=== PATIENT | male | born 1995 | race Caucasian/White ===

== ENCOUNTER 2018-06-07 09:38 | Emergency (ER) | payer SELFPAY ==
[2018-06-07] MEDS ORDERED: Sodium Chloride 0.9% 2.5 ML Syringe FLUSH PRN (10:37)
[2018-06-07] MEDS ORDERED: Sodium Chloride 0.9% 10 ML Syringe FLUSH PRN (10:37)
[2018-06-07] MEDS ORDERED: Sodium Chloride 0.9% 1,000 ML IV ONE (10:37)
[2018-06-07] MEDS ORDERED: Ondansetron 4 MG/2 ML SDV IVPUSH ONE (10:38)
--- NOTE | 2018-06-07 10:40 | EDM.PDOC ---
ED HPI GENERAL MEDICAL PROBLEM - General Chief Complaint: Abdominal Pain Stated Complaint: STOMACH HURTS Time Seen by Provider: 06/07/18 10:37 Source of Information: Reports: Patient History Limitations: Reports: No Limitations - History of Present Illness INITIAL COMMENTS - FREE TEXT/NARRATIVE: HISTORY AND PHYSICAL: History of present illness: Patient is a 22-year-old male here with complaint of vomiting and abdominal cramping sine yesterday evening. He states he is unable to keep anything down and has had diarrhea as well. He states his boss has had similar symptoms. He also states he has had a cough, sore throat, runny nose x 2 weeks. He denies chest pain, shortness of breath, melena, hematochezia, urinary symptoms. He smokes 1/2 ppd. Review of systems: As per history of present illness and below otherwise all systems reviewed and negative. Past medical history: As per history of present illness and as reviewed below otherwise noncontributory. Surgical history: As per history of present illness and as reviewed below otherwise noncontributory. Social history: No reported history of drug or alcohol abuse. Family history: As per history of present illness and as reviewed below otherwise noncontributory. Physical exam: General: Patient sitting comfortably in no acute distress and nontoxic appearing HEENT: Atraumatic, normocephalic, pupils reactive, negative for conjunctival pallor or scleral icterus, mucous membranes moist, throat clear, neck supple, nontender, trachea midline. No meningeal signs. Lungs: Clear to auscultation, breath sounds equal bilaterally, chest nontender. Heart: S1S2, regular, negative for clicks, rubs, or overt murmur. Abdomen: Soft, nondistended, nontender. Negative for masses or hepatosplenomegaly. Negative for costovertebral tenderness. Pelvis: Stable nontender. Genitourinary: Deferred. Rectal: Deferred. Extremities: Atraumatic, negative for cords or calf pain. Neurovascular unremarkable. Neuro: Awake, alert, oriented. Cranial nerves II through XII unremarkable. Cerebellum unremarkable. Motor and sensory unremarkable throughout. Exam nonfocal. Notes: Diagnostics: CBC, CMP, CXR Therapeutics: 1L NS IV 4mg Zofran IV Prescriptions: Azithromycin Ventolin inhaler Zofran Impression: Viral gastroenteritis, acute bronchitis Plan: 1. Take medications as prescribed 2. Follow up with primary care provider 3. Return to ED as needed as discussed Definitive disposition and diagnosis as appropriate pending reevaluation and review of above. Abdomen Pain Score (Numeric/FACES): 7 - Related Data Allergies Allergy/AdvReac Type Severity Reaction Status Date / Time No Known Allergies Allergy Verified 06/07/18 10:32 Home Meds: Home Meds Albuterol [Ventolin HFA] 1 puff INH Q4H #1 inhaler 06/07/18 [Rx] Azithromycin [Zithromax] 250 mg PO ASDIRECTED #1 dosepk 06/07/18 [Rx] Ondansetron [Zofran ODT] 4 mg PO Q6H PRN #10 tab.dis 06/07/18 [Rx] Past Medical History HEENT History: Reports: Impaired Vision Other HEENT History: wears glasses Social & Family History - Tobacco Use Smoking Status *Q: Current Every Day Smoker Years of Tobacco use: 2 Packs/Tins Daily: 0.5 - Caffeine Use Caffeine Use: Reports: Energy Drinks - Recreational Drug Use Recreational Drug Use: No ED ROS GENERAL - Review of Systems Review Of Systems: ROS reveals no pertinent complaints other than HPI. ED EXAM, GI/ABD - Physical Exam Exam: See Below (see dictation) Course - Vital Signs Last Recorded V/S: Last Vital Signs Temp 36.5 C 06/07/18 10:29 Pulse 88 06/07/18 10:29 Resp 18 06/07/18 10:29 BP 121/78 06/07/18 10:29 Pulse Ox 99 06/07/18 10:29 - Orders/Labs/Meds Orders: Active Orders 24 hr Category Date Time Status Chest 1V Frontal [CR] Stat Exams 06/07/18 10:37 Taken CULTURE STREP A CONFIRMATION [RM] Stat Lab 06/07/18 10:55 Results CULTURE URINE [RM] Stat Lab 06/07/18 11:55 Received STREP SCRN A RAPID W CULT CONF [RM] Stat Lab 06/07/18 10:55 Results Sodium Chloride 0.9% [Saline Flush] Med 06/07/18 10:37 Active 10 ml FLUSH ASDIRECTED PRN Sodium Chloride 0.9% [Saline Flush] Med 06/07/18 10:37 Active 2.5 ml FLUSH ASDIRECTED PRN Saline Lock Insert [OM.PC] Stat Oth 06/07/18 10:36 Ordered Medication Orders Sodium Chloride (Saline Flush) 10 ml FLUSH ASDIRECTED PRN PRN Reason: Keep Vein Open Sodium Chloride (Saline Flush) 2.5 ml FLUSH ASDIRECTED PRN PRN Reason: Keep Vein Open Labs: Laboratory Tests 06/07/18 06/07/18 06/07/18 Range/Units 11:00 11:00 11:55 WBC 3.76 L (4.0-11.0) K/uL RBC 4.95 (4.50-5.90) M/uL Hgb 15.2 (13.0-17.0) g/dL Hct 43.1 (38.0-50.0) % MCV 87.1 (80.0-98.0) fL MCH 30.7 (27.0-32.0) pg MCHC 35.3 (31.0-37.0) g/dL RDW Std Deviation 42.0 (28.0-62.0) fl RDW Coeff of Jennifer 13 (11.0-15.0) % Plt Count 230 (150-400) K/uL MPV 11.20 (7.40-12.00) fL Neut % (Auto) 34.8 L (48.0-80.0) % Lymph % (Auto) 48.9 H (16.0-40.0) % [place] % (Auto) 7.2 (0.0-15.0) % Eos % (Auto) 8.8 H (0.0-7.0) % Baso % (Auto) 0.3 (0.0-1.5) % Neut # (Auto) 1.3 L (1.4-5.7) K/uL Lymph # (Auto) 1.8 (0.6-2.4) K/uL [place] # (Auto) 0.3 (0.0-0.8) K/uL Eos # (Auto) 0.3 (0.0-0.7) K/uL Baso # (Auto) 0.0 (0.0-0.1) K/uL Nucleated RBC % 0.0 /100WBC Nucleated RBCs # 0 K/uL Sodium 138 (136-148) mmol/L Potassium 3.5 (3.5-5.1) mmol/L Chloride 104 (98-107) mmol/L Carbon Dioxide 28.2 (21.0-32.0) mmol/L BUN 10 (7.0-18.0) mg/dL Creatinine 1.0 (0.8-1.3) mg/dL Est Cr Clr Drug Dosing 104.56 mL/min Estimated GFR (MDRD) > 60.0 ml/min Glucose 105 (74-106) mg/dL Calcium 8.7 (8.5-10.1) mg/dL Total Bilirubin 0.3 (0.2-1.0) mg/dL AST 18 (15-37) IU/L ALT 27 (14-63) IU/L Alkaline Phosphatase 86 (46-116) U/L Total Protein 7.9 (6.4-8.2) g/dL Albumin 4.2 (3.4-5.0) g/dL Globulin 3.7 H (2.0-3.5) g/dL Albumin/Globulin Ratio 1.1 L (1.3-2.8) Urine Color YELLOW Urine Appearance CLEAR Urine pH 5.5 (5.0-8.0) Ur Specific [place] >= 1.030 (1.001-1.035) Urine Protein NEGATIVE (NEGATIVE) mg/dL Urine Glucose (UA) NEGATIVE (NEGATIVE) mg/dL Urine Ketones NEGATIVE (NEGATIVE) mg/dL Urine Occult Blood NEGATIVE (NEGATIVE) Urine Nitrite NEGATIVE (NEGATIVE) Urine Bilirubin NEGATIVE (NEGATIVE) Urine Urobilinogen 0.2 (<2.0) EU/dL Ur Leukocyte Esterase NEGATIVE (NEGATIVE) Urine RBC NONE SEEN (0-2/HPF) Urine WBC NONE SEEN (0-5/HPF) Ur Epithelial Cells RARE (NONE-FEW) Urine Bacteria NOT SEEN (NEGATIVE) Meds: Medications Generic Name Dose Route Start Last Admin Trade Name Freq PRN Reason Stop Dose Admin Sodium Chloride 10 ml 06/07/18 10:37 Saline Flush FLUSH ASDIRECTED PRN Keep Vein Open Sodium Chloride 2.5 ml 06/07/18 10:37 Saline Flush FLUSH ASDIRECTED PRN Keep Vein Open Discontinued Medications Generic Name Dose Route Start Last Admin Trade Name Freq PRN Reason Stop Dose Admin Sodium Chloride 1,000 mls @ 999 mls/hr 06/07/18 10:37 06/07/18 11:01 Normal Saline IV 06/07/18 11:37 999 mls/hr STAT ONE Administration Ondansetron HCl 4 mg 06/07/18 10:38 06/07/18 11:01 Zofran IVPUSH 06/07/18 10:39 4 mg ONETIME ONE Administration Departure - Departure Time of Disposition: 12:16 Disposition: Home, Self-Care 01 Condition: Good Clinical Impression: Viral gastroenteritis, Acute bronchitis - Discharge Information Prescriptions: Albuterol [Ventolin HFA] 1 puff INH Q4H #1 inhaler Azithromycin [Zithromax] 250 mg PO ASDIRECTED #1 dosepk Ondansetron [Zofran ODT] 4 mg PO Q6H PRN #10 tab.dis PRN Reason: Nausea/Vomiting Referrals: PCP,None [Primary Care Provider] - Forms: ED Department Discharge Additional Instructions: The following information is given to patients seen in the emergency department who are being discharged to home. This information is to outline your options for follow-up care. We provide all patients seen in our emergency department with a follow-up referral. The need for follow-up, as well as the timing and circumstances, are variable depending upon the specifics of your emergency department visit. If you don't have a primary care physician on staff, we will provide you with a referral. We always advise you to contact your personal physician following an emergency department visit to inform them of the circumstance of the visit and for follow-up with them and/or the need for any referrals to a consulting specialist. The emergency department will also refer you to a specialist when appropriate. This referral assures that you have the opportunity for follow-up care with a specialist. All of these measure are taken in an effort to provide you with optimal care, which includes your follow-up. Under all circumstances we always encourage you to contact your private physician who remains a resource for coordinating your care. When calling for follow-up care, please make the office aware that this follow-up is from your recent emergency room visit. If for any reason you are refused follow-up, please contact the [facility] Emergency Department at and asked to speak to the emergency department charge nurse. [facility] [address] [place] [id number] [facility] [address] [place] [id number] 1. Take medications as prescribed 2. Follow up with primary care provider 3. Return to ED as needed as discussed - My Orders Last 24 Hours: My Active Orders 06/07/18 10:36 Saline Lock Insert [OM.PC] Stat 06/07/18 10:37 Chest 1V Frontal [CR] Stat Sodium Chloride 0.9% [Saline Flush] 10 ml FLUSH ASDIRECTED PRN Sodium Chloride 0.9% [Saline Flush] 2.5 ml FLUSH ASDIRECTED PRN 06/07/18 10:55 CULTURE STREP A CONFIRMATION [RM] Stat STREP SCRN A RAPID W CULT CONF [RM] Stat 06/07/18 11:55 CULTURE URINE [RM] Stat - Assessment/Plan Last 24 Hours: My Active Orders 06/07/18 10:36 Saline Lock Insert [OM.PC] Stat 06/07/18 10:37 Chest 1V Frontal [CR] Stat Sodium Chloride 0.9% [Saline Flush] 10 ml FLUSH ASDIRECTED PRN Sodium Chloride 0.9% [Saline Flush] 2.5 ml FLUSH ASDIRECTED PRN 06/07/18 10:55 CULTURE STREP A CONFIRMATION [RM] Stat STREP SCRN A RAPID W CULT CONF [RM] Stat 06/07/18 11:55 CULTURE URINE [RM] Stat
[2018-06-07 11:38] LABS: CHLORIDE,CL 104 mmol/L (98-107); SODIUM,NA 138 mmol/L (136-148)
--- NOTE | 2018-06-08 18:37 | CR ---
EXAM DATE: 06/07/18 PATIENT'S AGE: 22 Patient: GOGO CONLEY Facility: [place], [place] Site . Site : 1995 Study: XRay Chest [id number]/30/2018 11:04:34 AM Ordering Physician: Doctor Grant Final Report: INDICATION: Abdominal pain Portable chest. Findings: Normal cardiac mediastinal silhouette. Lungs are clear of an acute airspace or interstitial process. No effusion or pneumothorax. IMPRESSION: 1. No acute pulmonary process. Dictated by Jane Silva MD @ Jun 07 2018 11:24AM (Electronic Signature) Report Signed by Proxy. APURVA
== END 2018-06-07 12:40 | disposition home or self-care (01) ==
LOC: MW.ED 09:38
DX: A08.4 Viral intestinal infection, unspecified (principal); J20.9 Acute bronchitis, unspecified; F17.210 Nicotine dependence, cigarettes, uncomplicated
CPT/HCPCS: 36415; 71045; 80053; 81001; 85025; 87081; 87086; 87880; 96361; 96365; 96375; 99285; J2405; J7040; 99283

== ENCOUNTER 2018-11-04 06:09 | Emergency (ER) | payer SELFPAY ==
--- NOTE | 2018-11-04 07:10 | EDM.PDOC ---
ED HPI GENERAL MEDICAL PROBLEM - General Chief Complaint: Respiratory Problem Stated Complaint: COUGHING UP BLOOD Time Seen by Provider: 11/04/18 07:08 Source of Information: Reports: Patient - History of Present Illness INITIAL COMMENTS - FREE TEXT/NARRATIVE: HISTORY AND PHYSICAL: History of present illness: []Patient presents with cough and nasal congestion and blood-tinged sputum some sore throat over the last week no fever nausea vomiting chills sweats general myalgias and malaise Review of systems: As per history of present illness and below otherwise all systems reviewed and negative. Past medical history: As per history of present illness and as reviewed below otherwise noncontributory. Surgical history: As per history of present illness and as reviewed below otherwise noncontributory. Social history: No reported history of drug or alcohol abuse. Family history: As per history of present illness and as reviewed below otherwise noncontributory. Physical exam: HEENT: Atraumatic, normocephalic, pupils reactive, negative for conjunctival pallor or scleral icterus, mucous membranes moist, throat clear, neck supple, nontender, trachea midline. Mild erythema no exudates tympanic membranes injected Lungs: Clear to auscultation, breath sounds equal bilaterally, chest nontender. Heart: S1S2, regular, negative for clicks, rubs, or JVD. Abdomen: Soft, nondistended, nontender. Negative for masses or hepatosplenomegaly. Negative for costovertebral tenderness. Pelvis: Stable nontender. Genitourinary: Deferred. Rectal: Deferred. Extremities: Atraumatic, negative for cords or calf pain. Neurovascular unremarkable. Neuro: Awake, alert, oriented. Cranial nerves II through XII unremarkable. Cerebellum unremarkable. Motor and sensory unremarkable throughout. Exam nonfocal. Diagnostics: [Influenza Chest 1 view ] Therapeutics: [Tamiflu Phenergan with codeine HFA ] Impression: Influenza Definitive disposition and diagnosis as appropriate pending reevaluation and review of above. Throat Pain Score (Numeric/FACES): 8 - Related Data Allergies Allergy/AdvReac Type Severity Reaction Status Date / Time No Known Allergies Allergy Verified 11/04/18 06:23 Past Medical History - Past Health History Medical/Surgical History: Denies Medical/Surgical History HEENT History: Reports: Impaired Vision Other HEENT History: wears glasses Social & Family History - Family History Family Medical History: Noncontributory - Tobacco Use Smoking Status *Q: Light Tobacco Smoker Years of Tobacco use: 1 Packs/Tins Daily: 0.1 - Caffeine Use Caffeine Use: Reports: Coffee, Energy Drinks, Soda, Tea - Recreational Drug Use Recreational Drug Use: No ED ROS GENERAL - Review of Systems Review Of Systems: See Below ED EXAM, GENERAL - Physical Exam Exam: See Below Course - Vital Signs Last Recorded V/S: Last Vital Signs Temp 98.4 F 11/04/18 06:23 Pulse 86 11/04/18 06:23 Resp 18 11/04/18 06:23 BP 138/90 11/04/18 06:23 Pulse Ox 99 11/04/18 06:23 - Orders/Labs/Meds Orders: Active Orders 24 hr Category Date Time Status CULTURE STREP A CONFIRMATION [RM] Stat Lab 11/04/18 06:28 Results STREP SCRN A RAPID W CULT CONF [RM] Stat Lab 11/04/18 06:28 Results Departure - Departure Time of Disposition: 07:32 Disposition: Home, Self-Care 01 Condition: Good Clinical Impression: Influenza - Discharge Information Instructions: Influenza, Adult, [id number] Referrals: PCP,None [Primary Care Provider] - Forms: ED Department Discharge Additional Instructions: The following information is given to patients seen in the emergency department who are being discharged to home. This information is to outline your options for follow-up care. We provide all patients seen in our emergency department with a follow-up referral. The need for follow-up, as well as the timing and circumstances, are variable depending upon the specifics of your emergency department visit. If you don't have a primary care physician on staff, we will provide you with a referral. We always advise you to contact your personal physician following an emergency department visit to inform them of the circumstance of the visit and for follow-up with them and/or the need for any referrals to a consulting specialist. The emergency department will also refer you to a specialist when appropriate. This referral assures that you have the opportunity for follow-up care with a specialist. All of these measure are taken in an effort to provide you with optimal care, which includes your follow-up. Under all circumstances we always encourage you to contact your private physician who remains a resource for coordinating your care. When calling for follow-up care, please make the office aware that this follow-up is from your recent emergency room visit. If for any reason you are refused follow-up, please contact the [facility] emergency department at and asked to speak to the emergency department charge nurse. - My Orders Last 24 Hours: My Active Orders 11/04/18 06:28 CULTURE STREP A CONFIRMATION [RM] Stat STREP SCRN A RAPID W CULT CONF [RM] Stat - Assessment/Plan Last 24 Hours: My Active Orders 11/04/18 06:28 CULTURE STREP A CONFIRMATION [RM] Stat STREP SCRN A RAPID W CULT CONF [RM] Stat
--- NOTE | 2018-11-04 07:26 | CR ---
Indication : 22 year-old male. Cough for 6 days. Hemoptysis. TECHNIQUE: Two-view chest. COMPARISON: Portable chest June 07, 2018. FINDINGS: Clear lungs. Normal heart size and pulmonary vascularity. Normal included skeletal thorax. IMPRESSION: Negative chest. No change other than technique. Dictated by Kenji Holloway MD @ Nov 04 2018 7:25AM Signed by Dr. Kenji Holloway @ Nov 04 2018 7:25AM
== END 2018-11-04 07:40 | disposition home or self-care (01) ==
LOC: MW.ED 06:09
DX: J11.1 Influenza due to unidentified influenza virus with other respiratory manifestations (principal); F17.210 Nicotine dependence, cigarettes, uncomplicated
CPT/HCPCS: 71046; 71046-26; 87081; 87804; 87880-QW; 99283-25

== ENCOUNTER 2019-03-03 14:52 | Emergency (ER) | payer SELFPAY ==
--- NOTE | 2019-03-03 15:24 | EDM.PDOC ---
ED HPI GENERAL MEDICAL PROBLEM - General Chief Complaint: General Stated Complaint: BROKE TOOTH Time Seen by Provider: 03/03/19 15:20 - History of Present Illness INITIAL COMMENTS - FREE TEXT/NARRATIVE: HISTORY AND PHYSICAL: History of present illness: Patient is a 23-year-old male presents with a concern of dental pain and jaw swelling he states he fractured a lower molar recently. He denies fever chills nausea vomiting Review of systems: As per history of present illness and below otherwise all systems reviewed and negative. Past medical history: As per history of present illness and as reviewed below otherwise noncontributory. Surgical history: As per history of present illness and as reviewed below otherwise noncontributory. Social history: No reported history of drug or alcohol abuse. Family history: As per history of present illness and as reviewed below otherwise noncontributory. Physical exam: HEENT: Atraumatic, normocephalic, pupils reactive, negative for conjunctival pallor or scleral icterus, mucous membranes moist, throat clear, neck supple, nontender, trachea midline. Generally poor dentition and is noted have multiple dental caries including a dental caries in the left lower molar with a secondary dental fracture and small gingival edema Lungs: Clear to auscultation, breath sounds equal bilaterally, chest nontender. Heart: S1S2, regular, negative for clicks, rubs, or JVD. Abdomen: Soft, nondistended, nontender. Negative for masses or hepatosplenomegaly. Negative for costovertebral tenderness. Pelvis: Stable nontender. Genitourinary: Deferred. Rectal: Deferred. Extremities: Atraumatic, negative for cords or calf pain. Neurovascular unremarkable. Neuro: Awake, alert, oriented. Cranial nerves II through XII unremarkable. Cerebellum unremarkable. Motor and sensory unremarkable throughout. Exam nonfocal. Diagnostics: None Therapeutics: None Impression: #1 dental caries with secondary dental fracture #2 rule out abscess Definitive disposition and diagnosis as appropriate pending reevaluation and review of above. Left Lower Tooth/Teeth Pain Score (Numeric/FACES): 8 - Related Data Allergies Allergy/AdvReac Type Severity Reaction Status Date / Time No Known Allergies Allergy Verified 03/03/19 15:12 Home Meds: Home Meds . [No Known Home Meds] 03/03/19 [History] Past Medical History - Past Health History Medical/Surgical History: Denies Medical/Surgical History HEENT History: Reports: Impaired Vision Other HEENT History: wears glasses - Infectious Disease History Infectious Disease History: Reports: None Social & Family History - Family History Family Medical History: Noncontributory - Tobacco Use Smoking Status *Q: Never Smoker Second Hand Smoke Exposure: No - Caffeine Use Caffeine Use: Reports: Coffee - Recreational Drug Use Recreational Drug Use: No ED ROS GENERAL - Review of Systems Review Of Systems: ROS reveals no pertinent complaints other than HPI. ED EXAM, GENERAL - Physical Exam Exam: See Below (See dictation) Course - Vital Signs Last Recorded V/S: Last Vital Signs Temp 36.3 C 03/03/19 15:12 Pulse 60 03/03/19 15:12 Resp 16 03/03/19 15:12 BP 118/80 03/03/19 15:12 Pulse Ox 96 03/03/19 15:12 Departure - Departure Time of Disposition: 15:22 Disposition: Home, Self-Care 01 Condition: Good Clinical Impression: Dentalgia, Dental caries, Dental abscess - Discharge Information Referrals: PCP,None [Primary Care Provider] - Additional Instructions: The following information is given to patients seen in the emergency department who are being discharged to home. This information is to outline your options for follow-up care. We provide all patients seen in our emergency department with a follow-up referral. The need for follow-up, as well as the timing and circumstances, are variable depending upon the specifics of your emergency department visit. If you don't have a primary care physician on staff, we will provide you with a referral. We always advise you to contact your personal physician following an emergency department visit to inform them of the circumstance of the visit and for follow-up with them and/or the need for any referrals to a consulting specialist. The emergency department will also refer you to a specialist when appropriate. This referral assures that you have the opportunity for followup care with a specialist. All of these measure are taken in an effort to provide you with optimal care, which includes your followup. Under all circumstances we always encourage you to contact your private physician who remains a resource for coordinating your care. When calling for followup care, please make the office aware that this follow-up is from your recent emergency room visit. If for any reason you are refused follow-up, please contact the [facility] emergency department at and asked to speak to the emergency department charge nurse. Augmentin as prescribed follow-up (discussed Motrin/Tylenol as directed return as needed as discussed
== END 2019-03-03 18:33 | disposition home or self-care (01) ==
LOC: MW.ED 14:52
DX: K04.7 Periapical abscess without sinus (principal)
CPT/HCPCS: 99282

== ENCOUNTER 2019-09-10 17:33 | Emergency (ER) | payer OTHER ==
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
[2019-09-10] MEDS ORDERED: Bacitracin Oint 28.35 GM Tube TOP STA (18:19)
== END 2019-09-10 18:40 ==
LOC: MW.ED 17:33
DX: T40.1X1A Poisoning by heroin, accidental (unintentional), initial encounter (principal); T21.21XA Burn of second degree of chest wall, initial encounter
CPT/HCPCS: 16020; 99284; A9270; 99283

== ENCOUNTER 2019-11-06 07:56 | Emergency (ER) | payer SELFPAY ==
--- NOTE | 2019-11-06 08:08 | EDM.PDOC ---
ED HPI GENERAL MEDICAL PROBLEM - General Chief Complaint: Upper Extremity Injury/Pain Stated Complaint: SWOLLEN HANDS Time Seen by Provider: 11/06/19 08:08 Source of Information: Reports: Patient History Limitations: Reports: No Limitations - History of Present Illness INITIAL COMMENTS - FREE TEXT/NARRATIVE: This 23 year old male presents to the ED with a chief complaint of pain and swelling in both hands for 7-8 months. He states that he cannot completely close his hands due to swelling. He states that he is using a hand cream for the pain in his hands. He states that he is in the ED today because his boss told him to have it checked out before returning to work. He has a family history of gout and feels that he my have gout. He denies any changes in soaps to wash his hands or using chemicals that may have caused his problem. He denies any other symptoms at this time. Onset: Gradual (7-8 months) Location: Reports: Other (both hands) Severity: Mild bilateral hands Pain Score (Numeric/FACES): 5 - Related Data Allergies Allergy/AdvReac Type Severity Reaction Status Date / Time No Known Allergies Allergy Verified 11/06/19 08:10 Home Meds: Home Meds predniSONE [Prednisone] 10 mg PO ASDIRECTED 5 Days #9 tablet 11/06/19 [Rx] Past Medical History - Past Health History Medical/Surgical History: Denies Medical/Surgical History HEENT History: Reports: Impaired Vision Other HEENT History: wears glasses - Infectious Disease History Infectious Disease History: Reports: None Social & Family History - Family History Family Medical History: Noncontributory - Caffeine Use Caffeine Use: Reports: Coffee Review of Systems - Review of Systems Review Of Systems: See Below Constitutional: Reports: No Symptoms Eyes: Reports: No Symptoms Ears: Reports: No Symptoms Nose: Reports: No Symptoms Respiratory: Reports: No Symptoms Cardiovascular: Reports: No Symptoms GI/Abdominal: Reports: No Symptoms Genitourinary: Reports: No Symptoms Musculoskeletal: Reports: Hand Pain (both hands with swelling of both hands) Skin: Reports: No Symptoms Neurological: Reports: No Symptoms ED EXAM, GENERAL - Physical Exam Exam: See Below Exam Limited By: No Limitations General Appearance: Alert, WD/WN, No Apparent Distress Nose: Normal Inspection, Normal Mucosa, No Blood Throat/Mouth: Normal Inspection, Normal Lips, Normal Teeth, Normal Gums, Normal Oropharynx, Normal Voice, No Airway Compromise Neck: Normal Inspection, Supple, Non-Tender, Full Range of Motion Respiratory/Chest: No Respiratory Distress, Lungs Clear, Normal Breath Sounds, No Accessory Muscle Use, Chest Non-Tender Cardiovascular: Normal Peripheral Pulses, Regular Rate, Rhythm, No Edema, No Gallop, No JVD, No Murmur, No Rub Peripheral Pulses: 4+: Radial (L), Radial (R) GI/Abdominal: Normal Bowel Sounds, Soft, Non-Tender, No Organomegaly, No Distention (Male) Exam: Deferred Rectal (Males) Exam: Deferred Back Exam: Normal Inspection, Full Range of Motion Extremities: Normal Capillary Refill, Limited Range of Motion (slight decrease ROM to flexion and extension of both hands that is most likely due to a small amount of swelling.), Other (both hands are slightly swollen with tenderness over the thenar emenance. There is also swelling over both 3-5 MP joints.) Neurological: Alert, CN II-XII Intact, Normal Reflexes, No Motor/Sensory Deficits Course - Vital Signs Text/Narrative:: I reviewed all of the patients lab test and his x-ray of both hands. All studies are negative. The patient will be discharged. He agrees with the discharge plan. Last Recorded V/S: Last Vital Signs Temp 96 F L 11/06/19 08:08 Pulse 86 11/06/19 08:08 Resp 16 11/06/19 08:08 BP 123/89 11/06/19 08:08 Pulse Ox 98 11/06/19 08:08 - Orders/Labs/Meds Labs: Laboratory Tests 11/06/19 Range/Units 08:36 Uric Acid 6.1 (2.6-7.2) mg/dL Meds: Medications Discontinued Medications Generic Name Dose Route Start Last Admin Trade Name Freq PRN Reason Stop Dose Admin Prednisone 30 mg 11/06/19 08:27 11/06/19 08:39 Prednisone PO 11/06/19 08:28 30 mg ONETIME ONE Administration Departure - Departure Time of Disposition: 10:08 Disposition: Home, Self-Care 01 Condition: Good Clinical Impression: Bilateral hand swelling - Discharge Information *PRESCRIPTION DRUG MONITORING PROGRAM REVIEWED*: Yes *COPY OF PRESCRIPTION DRUG MONITORING REPORT IN PATIENT AMBERLY: Yes Referrals: PCP,None [Primary Care Provider] - Forms: ED Department Discharge Additional Instructions: Take all medications as directed. Follow up with your PCP in the next two to four days. Rest for the next 24 hours. Return to the ED if your condition gets worse or should you have any questions or concerns. The following information is given to patients seen in the emergency department who are being discharged to home. This information is to outline your options for follow-up care. We provide all patients seen in our emergency department with a follow-up referral. The need for follow-up, as well as the timing and circumstances, are variable depending upon the specifics of your emergency department visit. If you don't have a primary care physician on staff, we will provide you with a referral. We always advise you to contact your personal physician following an emergency department visit to inform them of the circumstance of the visit and for follow-up with them and/or the need for any referrals to a consulting specialist. The emergency department will also refer you to a specialist when appropriate. This referral assures that you have the opportunity for follow-up care with a specialist. All of these measure are taken in an effort to provide you with optimal care, which includes your follow-up. Under all circumstances we always encourage you to contact your private physician who remains a resource for coordinating your care. When calling for follow-up care, please make the office aware that this follow-up is from your recent emergency room visit. If for any reason you are refused follow-up, please contact the [facility] Emergency Department at and asked to speak to the emergency department charge nurse. Sepsis Event Note - Focused Exam Vital Signs: Vital Signs Temp Pulse Resp BP Pulse Ox 11/06/19 08:08 96 F L 86 16 123/89 98 Date Exam was Performed: 11/06/19 Time Exam was Performed: 10:06
[2019-11-06] MEDS ORDERED: predniSONE 20 MG Tab PO ONE (08:27)
--- NOTE | 2019-11-06 08:47 | CR ---
Left hand: 2 views of the left hand were obtained. Comparison: No previous hand exam. Joint spaces are preserved. No focal erosions are identified. No discrete fracture or other abnormality is seen. Impression: 1. No abnormality is identified on 2 view left hand exam. Diagnostic code #1 This report was dictated in [place] Standard Time
--- NOTE | 2019-11-06 08:47 | CR ---
Right hand: 2 views of the right hand were obtained. Comparison: No previous right hand study. Joint spaces are preserved. No focal erosions are seen. No discrete fracture, dislocation or other bony abnormality is identified. Impression: 1. No abnormality is identified on 2 view right hand exam. Diagnostic code #1 This report was dictated in [place] Standard Time
== END 2019-11-06 10:24 | disposition home or self-care (01) ==
LOC: MW.ED 07:56
DX: M79.89 Other specified soft tissue disorders (principal)
CPT/HCPCS: 36415; 73120; 84550; 99283; A9270; 99282

== ENCOUNTER 2019-12-09 18:35 | Emergency (ER) | payer SELFPAY ==
--- NOTE | 2019-12-09 19:30 | EDM.PDOC ---
ED HPI GENERAL MEDICAL PROBLEM - General Chief Complaint: Drug or Alcohol Abuse Stated Complaint: SOB Time Seen by Provider: 12/09/19 19:25 Source of Information: Reports: Half-Way Records History Limitations: Reports: No Limitations - History of Present Illness INITIAL COMMENTS - FREE TEXT/NARRATIVE: This 24-year-old male presents the emergency room with a chief complaint of taking too much opiate medication. Patient denies suicidal ideation stating he just wanted to get high. Patient states he overdid it. Denies any shortness of breath or chest pain at this time and wants to go home Onset: Today Severity: Mild Improves with: Reports: None Worsens with: Reports: None Associated Symptoms: Reports: No Other Symptoms - Related Data Allergies Allergy/AdvReac Type Severity Reaction Status Date / Time No Known Allergies Allergy Verified 12/09/19 18:38 Home Meds: Home Meds . [No Known Home Meds] 12/09/19 [History] Past Medical History - Past Health History Medical/Surgical History: Denies Medical/Surgical History HEENT History: Reports: Impaired Vision Other HEENT History: wears glasses - Infectious Disease History Infectious Disease History: Reports: None Social & Family History - Family History Family Medical History: Noncontributory Musculoskeletal: Reports: Gout - Caffeine Use Caffeine Use: Reports: Coffee ED ROS GENERAL - Review of Systems Review Of Systems: See Below Constitutional: Reports: No Symptoms HEENT: Reports: No Symptoms Respiratory: Reports: No Symptoms Cardiovascular: Reports: No Symptoms Endocrine: Reports: No Symptoms GI/Abdominal: Reports: No Symptoms : Reports: No Symptoms Musculoskeletal: Reports: No Symptoms Skin: Reports: No Symptoms Neurological: Reports: No Symptoms Psychiatric: Reports: No Symptoms Hematologic/Lymphatic: Reports: No Symptoms Immunologic: Reports: No Symptoms - Physical Exam Exam: See Below Exam Limited By: No Limitations General Appearance: Alert, WD/WN, No Apparent Distress Eye Exam: Bilateral Eye: Normal Fundi, Normal Inspection Ears: Normal External Exam Nose: Normal Inspection Throat/Mouth: Normal Inspection, Normal Oropharynx Head Exam: Atraumatic, Normocephalic Neck: Normal Inspection Respiratory/Chest: No Respiratory Distress, Lungs Clear Cardiovascular: Normal Peripheral Pulses, Regular Rate, Rhythm GI/Abdominal: Normal Bowel Sounds, Soft, Non-Tender Neuro Exam (Abbreviated): Alert, Oriented, CN II-XII Intact, Normal Cognition Back Exam: Normal Inspection, Full Range of Motion Extremities: Normal Inspection, Normal Range of Motion Psychiatric: Normal Affect, Normal Mood Skin Exam: Warm, Dry, Intact, Normal Color Course - Vital Signs Text/Narrative:: This patient was here on unintentional overdose. Patient was aroused at home is been emergency room about 45 minutes states he feels much better and wants to go home. Patient denies wanting help for treatment of heroin. Patient has Narcan at home and wants to be discharged. Is stable at this time. Departure - Departure Time of Disposition: 19:29 Disposition: Home, Self-Care 01 Condition: Good Clinical Impression: Drug abuse, Narcotic overdose - Discharge Information Instructions: Finding Treatment for Addiction, Recovering From Addiction, Substance Use Disorder, Chronic Drug Toxicity Referrals: PCP,None [Primary Care Provider] - Forms: ED Department Discharge Additional Instructions: The following information is given to patients seen in the emergency department who are being discharged to home. This information is to outline your options for follow-up care. We provide all patients seen in our emergency department with a follow-up referral. The need for follow-up, as well as the timing and circumstances, are variable depending upon the specifics of your emergency department visit. If you don't have a primary care physician on staff , we will provide you with a referral. We always advise you to contact your personal physician following an emergency department visit to inform them of the circumstance of the visit and for follow-up with them and/or the need for any referrals to a consulting specialist. The emergency department will also refer you to a specialist when appropriate. This referral assures that you have the opportunity for follow-up care with a specialist. All of these measure are taken in an effort to provide you with optimal care, which includes your follow- up. Under all circumstances we always encourage you to contact your private physician who remains a resource for coordinating your care. When calling for follow-up care, please make the office aware that this follow-up is from your recent emergency room visit. If for any reason you are refused follow-up, please contact the [facility] Emergency Department at and asked to speak to the emergency department charge nurse. [facility] Primary Care [address] [place] [id number] [facility] [address] [place] [address]
== END 2019-12-09 19:30 | disposition home or self-care (01) ==
LOC: MW.ED 18:35
CPT/HCPCS: 99284

== ENCOUNTER 2022-07-16 08:49 | Emergency (ER) | payer OTHER | END 2022-07-16 09:14 | disposition home or self-care (01) | LOC: MW.ED 08:49 | DX: L03.011 Cellulitis of right finger (principal) | CPT/HCPCS: 99283 ==

== ENCOUNTER 2022-08-30 12:55 | Emergency (ER) | payer SELFPAY ==
[2022-08-30] MEDS ORDERED: Tetracaine HCl/PF 0.5% 4 ML Bottle EYEBOTH STA (13:56)
== END 2022-08-30 15:24 | disposition home or self-care (01) ==
LOC: MW.ED 12:55
DX: T54.91XA Toxic effect of unspecified corrosive substance, accidental (unintentional), initial encounter (principal); H10.213 Acute toxic conjunctivitis, bilateral; S00.12XA Contusion of left eyelid and periocular area, initial encounter; S00.11XA Contusion of right eyelid and periocular area, initial encounter; S00.81XA Abrasion of other part of head, initial encounter; F10.929 Alcohol use, unspecified with intoxication, unspecified; Y90.6 Blood alcohol level of 120-199 mg/100 ml; Z72.0 Tobacco use; Y04.0XXA Assault by unarmed brawl or fight, initial encounter
CPT/HCPCS: 36415; 70450; 70450-26; 70480; 70480-26; 80053; 80307; 85025; 99284

== ENCOUNTER 2022-10-28 15:22 | Emergency (ER) | payer SELFPAY ==
[2022-10-28] MEDS ORDERED: Ketorolac 60 MG/2 ML SDV IM STA (16:16)
[2022-10-28] MEDS ORDERED: Orphenadrine 60 MG/2 ML Inj IM STA (16:16)
== END 2022-10-28 17:14 | disposition home or self-care (01) ==
LOC: MW.ED 15:22
DX: R07.89 Other chest pain (principal); Z72.0 Tobacco use; W00.0XXA Fall on same level due to ice and snow, initial encounter; Y93.01 Activity, walking, marching and hiking
CPT/HCPCS: 71101; 93005; 96372; 99285; J1885; J2360; 93010; 99284

== ENCOUNTER 2022-10-30 11:10 | Emergency (ER) | payer SELFPAY ==
[2022-10-30] MEDS ORDERED: HYDROmorphone 1 MG/ML Syringe IM ONE (11:37)
== END 2022-10-30 13:26 | disposition home or self-care (01) ==
LOC: MW.ED 11:10
DX: R07.89 Other chest pain (principal); Z76.5 Malingerer [conscious simulation]; W00.0XXA Fall on same level due to ice and snow, initial encounter; Y93.02 Activity, running
CPT/HCPCS: 71045; 96372; 99285; J1170